=== PATIENT | female | born 1995 | race Hispanic/Latino ===

== ENCOUNTER 2017-11-05 20:59 | Inpatient (IN) | payer MEDICAID, OTHER ==
[~2017-11-05] VITALS: Ht 160 cm; Wt 71.2 kg
[2017-11-05 21:36] LABS: APPEARANCE,URINE Cloudy (CLEAR); BILIRUBIN,URINE Negative (NEGATIVE); COLOR,URINE Yellow (YELLOW); GLUCOSE, URINE (UA) Negative (NEGATIVE); KETONES,URINE Negative (NEGATIVE); LEUKOCYTE ESTERASE ,URINE Moderate (NEGATIVE); NITRATE,URINE Negative (NEGATIVE); OCCULT BLOOD,URINE Negative (NEGATIVE); PROTEIN,URINE Negative (NEGATIVE)
[2017-11-05 21:57] LABS: BACTERIA,URINE Many /HPF (None Seen); RBC,URINE None Seen /HPF (0-1); SQUAMOUS EPITHELIAL CELL,UR 50-100 /LPF (0-2)
[2017-11-05] MEDS: LACTATED RINGERS 1000ML 1,000 ML IV PRN (22:35)
[2017-11-05 22:44] LABS: HEMATOCRIT 32.1 % (36-48); MEAN CORPUSCULAR HEMOGLOBIN 24.4 pg (27.0-33.0); MEAN CORPUSCULAR HGB CONC 33.4 g/dL (32.0-36.0); MEAN CORPUSCULAR VOLUME 73.1 fL (80-100); NUCLEATED RED BLOOD CELLS 0.1 % (0.0-0.19); PLATELET COUNT (AUTO) 204 K/uL (130-400); RED BLOOD CELL COUNT(AUTO) 4.39 MIL/uL (4.00-5.50); RED CELL DISTRIBUTION WIDTH 18.5 % (11.0-15.5); WHITE BLOOD COUNT (AUTO) 12.2 K/uL (4.8-10.8)
[2017-11-06] MEDS: LACTATED RINGERS 1000ML 1,000 ML IV PRN ×3 (00:18→05:17)
[2017-11-06] MEDS ORDERED: OXYTOCIN 10 USP UNITS/ML ONE ×2 (07:03→12:48)
[2017-11-06] MEDS ORDERED: LACTATED RINGERS 1000ML 1,000 ML IV ONE (07:03)
[2017-11-06] MEDS ORDERED: OXYTOCIN 10 USP UNITS/ML 20 UNIT in LACTATED RINGERS 1000ML 1,000 ML IV SCH (07:15)
[2017-11-06] MEDS: PROMETHAZINE HCL 25 MG/ML 1ML AMPULE IM SCH ×2 (10:05→20:21)
[2017-11-06] MEDS: MEPERIDINE-PF 50 MG/ML SYG IVP SCH ×2 (10:05→20:21)
[2017-11-06] MEDS ORDERED: ACETAMINOPHEN 325 MG TAB PO PRN (12:30)
[2017-11-06] MEDS ORDERED: ACETAMINOPHEN-CODEINE 300/30MG TAB PO PRN (12:30)
[2017-11-06] MEDS ORDERED: HYDROCODONE/ACETAMINOPHEN 5/325 MG TAB PO PRN (12:30)
[2017-11-06] MEDS ORDERED: MEASLES/MUMPS/RUBELLA VACCINE, LIVE 0.5 ML/VIAL SQ PRN (12:30)
[2017-11-06] MEDS ORDERED: BENZOCAINE/LANOLIN/ALOE VERA 60 ML AEROSOL TP PRN (12:30)
[2017-11-06] MEDS ORDERED: WITCH HAZEL 1 PAD TP PRN (12:30)
[2017-11-06] MEDS ORDERED: LANOLIN 30GM OINTMENT TP PRN (12:30)
[2017-11-06] MEDS ORDERED: DIPH,PERTUSS(ACELL),TET VAC/PF 0.5 ML VIAL IM PRN (12:30)
[2017-11-06 14:07] VITALS: BP 103/70
[2017-11-06] MEDS ORDERED: FERR-82 PO (14:28)
[2017-11-06 15:58] VITALS: BP 106/62
[2017-11-06] MEDS: IBUPROFEN 800 MG TAB PO PRN (17:22)
[2017-11-06 19:38] VITALS: BP 97/59
[2017-11-06] MEDS: DOCUSATE SODIUM 100 MG CAP PO SCH (20:52)
[2017-11-06 23:34] VITALS: BP 104/62
[2017-11-07 03:31] VITALS: BP 99/64
[2017-11-07 05:43] LABS: HEMATOCRIT 31.1 % (36-48); MEAN CORPUSCULAR HEMOGLOBIN 24.1 pg (27.0-33.0); MEAN CORPUSCULAR HGB CONC 32.8 g/dL (32.0-36.0); MEAN CORPUSCULAR VOLUME 73.5 fL (80-100); PLATELET COUNT (AUTO) 170 K/uL (130-400); RED BLOOD CELL COUNT(AUTO) 4.23 MIL/uL (4.00-5.50); RED CELL DISTRIBUTION WIDTH 18.6 % (11.0-15.5); WHITE BLOOD COUNT (AUTO) 12.7 K/uL (4.8-10.8)
[2017-11-07 07:46] VITALS: BP 99/60
[2017-11-07 08:23] LABS: HEPATITIS Bs ANTIGEN SCREEN P Negative (Negative)
[2017-11-07] MEDS: DOCUSATE SODIUM 100 MG CAP PO SCH (08:50)
[2017-11-07] MEDS: IBUPROFEN 800 MG TAB PO PRN (08:50)
[2017-11-07 11:37] VITALS: BP 99/69
== END 2017-11-07 14:25 | disposition home or self-care (01) | DRG 560 ==
LOC: EDH 20:59 → LDH 21:08 → OBSVTOIN 22:35 → LDH 11-06 08:16 → WSH 11-06 14:05
PROVIDERS: ADMIT Obstetrics & Gynecology; ATTEND Obstetrics & Gynecology
PROC: 10E0XZZ Delivery of Products of Conception, External Approach (ICD-10-PCS; principal; 2017-11-06)
PROC: 10907ZC Drainage of Amniotic Fluid, Therapeutic from Products of Conception, Via Natural or Artificial Opening (ICD-10-PCS; 2017-11-06)
PROC: 3E0234Z Introduction of Serum, Toxoid and Vaccine into Muscle, Percutaneous Approach (ICD-10-PCS; 2017-11-06)
PROC: 3E0234Z Introduction of Serum, Toxoid and Vaccine into Muscle, Percutaneous Approach (ICD-10-PCS; 2017-11-06)
DX: O69.1XX0 Labor and delivery complicated by cord around neck, with compression, not applicable or unspecified (principal); Z23 Encounter for immunization; Z37.0 Single live birth; Z3A.38 38 weeks gestation of pregnancy
CPT/HCPCS: 36415; 81001; 85027; 86592; 86850; 86900; 86901; 87340; 90715; A4351; J2175; J2550; J2590; J7120

== ENCOUNTER 2017-12-06 22:07 | Emergency (ER) | payer MEDICAID ==
[~2017-12-06 22:07] MED LIST: FERR-82 PO
== END 2017-12-06 23:19 | disposition home or self-care (01) ==
LOC: EDH 22:07
DX: J02.9 Acute pharyngitis, unspecified (principal)
CPT/HCPCS: 87880

== ENCOUNTER 2021-04-03 07:30 | Emergency (ER) | payer MEDICAID, OTHER ==
[~2021-04-03] VITALS: Ht 160 cm; Wt 72.6 kg
[2021-04-03 07:35] VITALS: BP 114/76
== END 2021-04-03 09:20 | disposition left against medical advice (07) ==
LOC: EDH 07:30
DX: R10.13 Epigastric pain (principal); Z53.21 Procedure and treatment not carried out due to patient leaving prior to being seen by health care provider